=== PATIENT | female | born 1960 | race Caucasian/White ===

== ENCOUNTER 2025-07-30 03:37 | Outpatient (CLI) | payer MEDICARE, SELFPAY ==
[2025-07-30 14:26] LABS: Abs Immature Grans 0.01 10^3/uL (0.0-0.06); HCT 36.8 % (36.0-46.0); HGB 11.9 g/dL (11.2-15.7); Immature Grans % 0.2 %; MCH 28.7 pg (27.0-33.0); MCHC 32.3 % (32.0-36.0); MCV 89 fL (80-95); MPV 11.5 fL (8.0-11.0); Platelet Count 278 10^3/uL (130-400); RBC 4.14 10^6/uL (3.93-5.22); RDW 13.1 % (11.7-14.6); RDW-SD 42.6 fL; WBC 4.88 10^3/uL (4.4-10.8)
[2025-07-30 14:35] LABS: Hemoglobin A1C 5.8 % (<5.7)
[2025-07-30 14:59] LABS: ALT 21 U/L (14-59); AST 13 U/L (15-37); Albumin 3.6 g/dL (3.4-5.0); Alkaline Phosphatase 61 U/L (46-116); Anion Gap 9.2 mmol/L (3-11); BUN 18 mg/dL (7-18); Bilirubin, Total 0.6 mg/dL (0.2-1.0); CO2 27.8 mmol/L (21.0-32.0); Calcium 8.6 mg/dL (8.5-10.1); Calculated LDL 182 mg/dL (<100); Chloride 103 mmol/L (98-107); Cholesterol 260 mg/dL (<200); Estimated GFR 98.93 (mL/min/1.73m2); Glucose 96 mg/dL (74-106); HDL Cholesterol 53 mg/dL (>or=50); Potassium 4.1 mmol/L (3.5-5.1); Sodium 140 mmol/L (136-145); TSH (W/Ref FT4) 1.52 uIU/mL (0.36-3.74); Total Protein 7.0 g/dL (6.4-8.2); Triglyceride 126 mg/dL (<150); Vitamin D 25 Total 66 ng/mL (30-100)
[2025-08-01 10:06] LABS: HBs Antibody, Quant 3.4 mIU/mL (See Note); Hepatitis B Surface Antigen Negative (Negative)
[2025-08-01 10:13] LABS: HIV-1/2 Ag & Ab Screen Negative (Negative)
[2025-08-01 10:21] LABS: Hepatitis C Ab w Rflx HCV PCR Negative (Negative)
== END 2025-07-30 03:38 | disposition home or self-care (01) ==
LOC: LOS 03:38
PROVIDERS: PCP Nurse Practitioner Family; Visit Provider Nurse Practitioner Family
DX: Z11.4 Encounter for screening for human immunodeficiency virus [HIV] (principal); E78.5 Hyperlipidemia, unspecified; Z11.59 Encounter for screening for other viral diseases; M81.0 Age-related osteoporosis without current pathological fracture; R73.01 Impaired fasting glucose
CPT/HCPCS: 36415; 80053; 80061; 82306; 86704; 86706; 86803; 87340; 87389; 83036; 84443; 85025